=== PATIENT | female | born 1960 | race Caucasian/White ===

== ENCOUNTER 2018-02-24 11:44 | Emergency (ER) | payer OTHER ==
--- NOTE | 2018-02-24 14:38 | RAD ---
CHEST 1 VIEW: DATE: 02/24/2018. TIME: 12:38 p.m. HISTORY: Chest pain. FINDINGS: The heart size is normal. The lungs are expanded. No focal areas of consolidation, pneumothoraces, or pleural effusions. IMPRESSION: No acute process. POS: [facility]
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
== END 2018-02-24 13:36 | disposition home or self-care (01) ==
LOC: NAV ERS 11:44
DX: S13.9XXA Sprain of joints and ligaments of unspecified parts of neck, initial encounter (principal); S00.531A Contusion of lip, initial encounter; I10 Essential (primary) hypertension; F41.9 Anxiety disorder, unspecified; F17.210 Nicotine dependence, cigarettes, uncomplicated; Z79.899 Other long term (current) drug therapy; V43.52XA Car driver injured in collision with other type car in traffic accident, initial encounter
CPT/HCPCS: 70450; 71045; 72125